=== PATIENT | female | born 1985 | race Caucasian/White ===

== ENCOUNTER 2024-12-26 00:51 | Day surgery (SDC) | payer BC, SELFPAY ==
[2024-12-20 15:10] VITALS: BMI 28.3
--- NOTE | 2024-12-20 15:11 | PC.NURSE ---
Report to the Outpatient Waiting Room, entrance under the green pavilion located off [facility], at time _0600_ on date _[id number]_. Planned Procedure Time: _0730_.? Time changes happen often and if your time is changed the preop area will call you the afternoon before. - You and your visitor will be asked to self-screen and do not enter if you have any COVID symptoms. Please call surgeon if you need to reschedule. - A mask is optional within the hospital at this time. - No food or drink from midnight until time of surgery and no smoking, or chewing tobacco (or any form of nicotine). No chewing gum, candy or mints. Take only the following medications with a SIP of water on the morning of surgery: ____Bupropion and Escitalopram DO NOT STOP ANY OF YOUR OTHER PRESCRIPTION MEDICATIONS PRIOR TO SURGERY EXCEPT THE FOLLOWING Hold all vitamins and supplements for 3 days per anesthesiologist. Medications to discontinue per physician ____Zepbound Date to take last dose___Stop now. Please no make-up, nail indonesian, hairspray, perfume, deodorant, or body powder the day of surgery.? No jewelry (including any body piercings) or valuables the day of surgery, leave them at home.? Please take a shower or bath the night before, or the morning of, surgery with an antibacterial soap.? Wear comfortable, loose fitting clothing.? - Jewelry must be removed prior to entering the operating room.? Rings and piercings that are not removed may be cut off. - The hospital will not accept responsibility for valuables.? - Please leave all valuables, including medications, at home the day of surgery. If you are going home after surgery, a licensed otr truck driver must drive you home.? - NO public transportation without another adult if you receive anesthesia. - We recommend that an adult stay with you for 24 hours following discharge. - We also recommend that you do not drive, make important decision, drink alcoholic beverages, or take any drugs that were not prescribed by your health care provider for at least 24 hours after your discharge time. Follow any additional instructions given to you from your surgeon. Telephone instructions given to __Betty__and asked if any additional questions and then verbalized understanding. Patient advised to call surgeon office or pre surgery nurse liaison [phone] if any additional questions.
[2024-12-26] VITALS (11 sets, daily range): BP systolic 97–120; BP diastolic 40–81; PULSE 80–104; RESP 10–20; TEMP 36.1–36.6; O2SAT 100; BMI 28.8
--- OUTSIDE RECORDS SUMMARY | 2024-12-26 00:55 | XMS_ITS | Clinical Summary ---
Author Organization [facility] Address [address] [place] [address] Care Team Providers Care Dub Room Engineer Name Role Phone Esau Padron DO Primary Care Provider [phone] Allergies Active Allergy Reactions Criticality Noted Date Comments Sulfa Antibiotics Unknown,Anaphylaxis High 4 Medications levothyroxine (EUTHYROX) 50 MCG tabletIndications: Other specified hypothyroidism Take 1 tablet (50 mcg total) by mouth every morning. 90 tablet 3 10/11/20 22 Active EUTHYROX 25 MCG tabletIndications: Other specified hypothyroidism Take every other day alternating with 50mcg 90 tablet 3 10/11/20 22 Active escitalopram (LEXAPRO) 10 MG tabletIndications: Anxiety Take 1 tablet by mouth once daily 90 tablet 07/26/20 23 Active metFORMIN (GLUCOPHAGE) 500 MG tabletIndications: PCOS (polycystic ovarian syndrome) TAKE 1 TABLET BY MOUTH TWICE DAILY WITH MEALS 180 tablet 09/30/20 23 Active folic acid (FOLVITE) 1 MG tablet 10/03/20 23 Active Active Problems Problem Noted Date Diagnosed Date Other specified hypothyroidism 04/27/2022 Anxiety 04/27/2017 PCOS (polycystic ovarian syndrome) 04/14/2016 Ankle pain 10/10/2015 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 Allergic rhinitis 10/23/2014 Dysmenorrhea 10/23/2014 Incisional hernia 10/23/2014 Resolved Problems Problem Noted Date Diagnosed Date Resolved Date Encounter for preventive health examination 10/21/2014 07/25/2020 Immunizations Name Administration Dates Next Due Flublok (Quadrivalent) 10/12/2023,2021,10/05/2021,10/03/2020, 9 Hepatitis B 04/26/2001,02/22/2001,08/10/2000 Tdap (Generic) 12/28/2016,09/02/2010 Family History Medical History Relation Comments No Known Problems Brother Hyperlipidemia Father Hypertension Father No Known Problems Maternal Aunt No Known Problems Maternal Grandfather Heart Disease Maternal Grandmother Parkinson's Disease Maternal Grandmother No Known Problems Maternal Uncle Fibromyalgia Mother No Known Problems Paternal Aunt Brain Tumor Paternal Grandfather Pancreas Disease Paternal Grandmother cancer No Known Problems Paternal Uncle No Known Problems Sister Relation Status Comments Brother Father Alive Maternal Aunt Maternal Grandfather Maternal Grandmother Maternal Uncle Mother Alive Paternal Aunt Paternal Grandfather Paternal Grandmother Paternal Uncle Sister Social History Tobacco Use Types Packs/Day Years Used Date Smoking Tobacco: Never Smokeless Tobacco: Never Alcohol Use Standard Drinks/Week Comments Yes 0 (1 standard drink = 0.6 oz pur e alcohol) occas PHQ-2 Answer Date Recorded PHQ-2 Score - If the patient scores above 3, please move on to questions 3-9 0 10/05/2021 Comments No Sex and Gender Information Value Date Recorded Sex Assigned at Not on file Legal Sex Female 7:32 PM CDT Gender Identity Not on file Sexual Orientation Not on file 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 Not on file Not on file Last Filed Vital Signs Vital Sign Reading Time Taken Comments Blood Pressure 132/84 10/12/2023 8:02 AM 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 Pulse 88 10/12/2023 8:02 AM 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 Temperature 36.5 C (97.7 F) 09/03/2022 2:26 PM CDT Respiratory Rate 18 06/04/2020 2:38 PM CDT Oxygen Saturation 98% 10/11/2022 3:12 PM 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 Inhaled Oxygen Concentration - - Weight 81.6 kg (180 lb) 05/30/2020 6:10 PM CDT Height 160 cm (5' 3 ) 04/27/2022 12:51 PM CDT Body Mass Index 32.92 05/30/2020 6:10 PM CDT Plan of Treatment Health Maintenance Due Date Last Done Comments Cervical Cancer Screening Pap Smear (Age 30 to 64) Every 3 Years 1983 Hepatitis C 2001 Cervical Cancer Screening Pap with HPV Testing (Age 30 to 64) Every 5 Years 2013 Cervical Cancer Screening with HPV 2013 Mammogram Screening 2023 COVID-19 Vaccine ( season) 2024 11/04/2021, 01/29/2021, 01/01/2021 Influenza Adult (#1) 2024 10/12/2023, 10/11/2022, 10/05/2021, Additional history exists Annual Physical 10/12/2024 10/12/2023, 09/15, 10/05/2021, Additional history exists DTaP, Tdap and Td Vaccines (3 - Td or Tdap) 12/28/2026 12/28/2016, 09/02/2010 Hepatitis B Vaccines Completed 04/26/2001, 02/22/2001, 08/10/2000 HPV Vaccines Aged Out No longer eligi ble based on patient's age to complete this topic Meningococcal B Vaccine Aged Out No l onger eligible based on patient's age to complete this topic Meningococcal Vaccine Aged Out No makenna berta eligible based on patient's age to complete this topic Pneumococcal Vaccine: Pediatrics (0 to 5 Years) and At-Risk Patients (6 to 64 Years) Aged Out No longer eligible based on patient's age to complete this topic RSV Immunizations Under 20 Months Aged Out No longer eligible based on patient's age to complete this topic Insurance [facility] Care Teams Dub Room Engineer Relationship Specialty Start Date End Date Esau Padron DO PCP - General 10/10/15
--- OUTSIDE RECORDS SUMMARY | 2024-12-26 00:55 | XMS_ITS | Clinical Summary ---
Author Organization [facility] Address [address] [place] [address] Care Team Providers Care Die Cast Supervisor Name Role Phone Unavailable Primary Care Provider Unavailabl e Source Comments [facility],non-owned Affiliates and Associated Physician Practices is amultiple site organization consisting of ambulatory clinics and hospital sitesin [place], [place], [place] and [place]. This disclosure is being madepursuant to the Care Everywhere program and may not contain all information available regarding this patient. Last updated 18.[facility] [employer] Social History Tobacco Use Types Packs/Day Years Used Date Smoking Tobacco: Never Assessed Sex and Gender Information Value Date Recorded Sex Assigned at Not on file Gender Identity Not on file Sexual Orientation Not on file Plan of Treatment Health Maintenance Due Date Last Done Comments LIPID TESTING 1983 MAMMOGRAM 1983 PAP SMEAR 1983 HIV SCREENING 1998 HEPATITIS C SCREENING 03/27/2001 DTAP/TDAP/TD VACCINES (1 - Tdap) 2002 HEPATITIS B VACCINE (1 of 3 - 19+ 3-dose series) 2002 COVID-19 VACCINE (2023-2 5 season) 2024 INFLUENZA VACCINE (#1) 2024 DEPRESSION SCREENING 11/14/2024 ZOSTER VACCINE (1 of 2) 2033 HIB VACCINE Aged Out No longer eligi ble based on patient's age to complete this topic HPV VACCINE Aged Out No longer eligi ble based on patient's age to complete this topic MENINGOCOCCAL (Group B) VACCINE Aged Out No longer eligible based on patient's age to complete this topic MENINGOCOCCAL VACCINE Aged Out No makenna berta eligible based on patient's age to complete this topic PNEUMOCOCCAL VACCINE Aged Out No long er eligible based on patient's age to complete this topic
--- OUTSIDE RECORDS SUMMARY | 2024-12-26 00:55 | XMS_ITS | Encounter Summary ---
Author Organization [facility] Address [address] [place] [address] Care Team Providers Care Control Technician Name Role Phone Unavailable Primary Care Provider Unavailabl e Encounter Details Date Type Department Care Team (Late st Contact Info) Description 04/29/2022 Lab Requisition [facility] [address] [place], [place] [id number] Nikolas Corral MD [address] [place] [address] Social History Tobacco Use Types Packs/Day Years Used Date Smoking Tobacco: Never Assessed Sex and Gender Information Value Date Recorded Sex Assigned at Not on file Gender Identity Not on file Sexual Orientation Not on file documented as of this encounter Plan of Treatment Not on file documented as of this encounter Procedures Procedure Name Priority Date/Time Associated Diagnosis Comments HCG BETA BLOOD QUANTITATIVE STAT 04/29/2022 12:59 PM CDT documented in this encounter Results * HCG BETA BLOOD QUANTITATIVE (04/29/2022 12:59 PM CDT) hCG Quantitative 6.58 mIU/mL 04/29/20 4:13 PM CDT [facility] Blood BLOOD SPECIMEN / Unknown Venipuncture / Unknown 04/29/2022 12:59 PM CDT 04/29/2022 3:35 PM CDT Narrative [facility] - 04/29/2022 4:13 PM CDT hCG Reference Range, mIU/mL: Males 0-2.0 Non Females 0-6.0 Perimenopausal Females ages 41-55* 0-7.7 Postmenopausal Females age >55* 0-14 Females, Weeks after Last Menstrual Period 0.2-1 week 5-50 1 - 2 weeks 50-500 2 - 3 weeks 100-5000 3 - 4 weeks 500-10,000 4 - 5 weeks 1000-50,000 5 - 6 weeks 10,000-100,000 6 - 8 weeks 15,000-200,000 2 - 3 months 10,000-100,000 Trophoblastic Disease >100,000 *In higher than expected hCG in females > age 40, a serum FSH >20 IU/L makes unlikely. Nikolas Corral MD LAB - CHEMISTRY NIDIA CHAPARRO [facility] Organization Address City/State/[facility] Co de Phone Number [facility] [address] [place] [address] documented in this encounter Visit Diagnoses Not on filedocumented in this encounter
--- OUTSIDE RECORDS SUMMARY | 2024-12-26 00:55 | XMS_ITS | Encounter Summary ---
Author Organization [facility] Address [address] [place] [address] Care Team Providers Care Fats And Oils Loader Name Role Phone Unavailable Primary Care Provider Unavailabl e Encounter Details Date Type Department Care Team (Late st Contact Info) Description 07/10/2019 Lab Requisition [facility] [address] [place] [id number] Annemarie Vines DO [address] [place] [address] Social History Tobacco Use Types Packs/Day Years Used Date Smoking Tobacco: Never Assessed Sex and Gender Information Value Date Recorded Sex Assigned at Not on file Gender Identity Not on file Sexual Orientation Not on file documented as of this encounter Plan of Treatment Not on file documented as of this encounter Procedures Procedure Name Priority Date/Time Associated Diagnosis Comments DERMATOPATHOLOGY Routine 07/09/2019 12:0 0 AM CDT documented in this encounter Results * DERMATOPATHOLOGY (07/09/2019 12:00 AM CDT) Case Report Dermatopathology Report Case: [id number] Authorizing Provider: Annemarie Vines DO Collected: 07/09/2019 12:00 AM Ordering Location: [facility] Received: 07/10/2019 08:17 AM Pathologist: Erin Mobley MD Specimen: Skin, left anterior le 9 12:37 PM CDT DERMATOPATHOLOGY LABORATORY Final Diagnosis Specimen A. SKIN, left anterior le: COMPOUND MELANOCYTIC NEVUS, IRRITATED (D22.72) 9 12:37 PM CDT DERMATOPATHOLOGY LABORATORY Clinical History Nevus vs ISK R/O MM; irregular color. 12:37 PM CDT DERMATOPATHOLOGY LABORATORY Gross Description Specimen A: Received is one formalin filled container labeled with the patient's name and designated left anterior le. The specimen consists of a shave measuring [id number]. Jar 0. 12:37 PM [facility] DERMATOPATHOLOGY LABORATORY Microscopic Description Specimen A. SKIN, left anterior le: There is melanin pigment in the stratum corneum. There are nests of melanocytes at the dermal-epidermal junction and within the dermis. 12:37 PM T DERMATOPATHOLOGY LABORATORY Disclaimer An external and internal positive and negative controls are appropriate for the histochemical, immunohistochemical and immunofluorescence stain(s) in this case (if any), except where stated explicitly. The performance characteristics of the stain(s) cited in this report were developed and its performance characteristic determined by the Dermatopathology Laboratory at [facility], directed by Dr. Devin Simmons. These tests need not be, and therefore are not, approved by the [place] Food and Drug Administration. The tests are used for clinical purposes. Billing Codes Specimen Charges Stain Charges 06699 1 12:37 PM CDT DERMATOPATHOLOGY LABORATORY Embedded Images 12:37 PM CDT DERMATOPATHOLOGY LABORATORY Pathology/Cytolog y TISSUE SPECIMEN FROM SKIN / Unknown 07/09/2019 07/10/2019 8:17 AM CDT Annemarie Vines DO LAB - PATHOLOGY/C YTOLOGY ORDERABLES DERMATOPATHOLOGY LABORATORY [facility] - Department of Dermatology [address] [place] [address] [address] Floor Lab [address] [place], [place] [id number] [place] [address] documented in this encounter Visit Diagnoses Not on filedocumented in this encounter
--- OUTSIDE RECORDS SUMMARY | 2024-12-26 00:55 | XMS_ITS | Referral Summary ---
Author Organization [facility] Address [address] [place] [address] Care Team Providers Care Healthcare Educator Name Role Phone Unavailable Primary Care Provider Unavailabl e Source Comments [facility],non-owned Affiliates and Associated Physician Practices is amultiple site organization consisting of ambulatory clinics and hospital sitesin [place], [place], [place] and [place]. This disclosure is being madepursuant to the Care Everywhere program and may not contain all information available regarding this patient. Last updated 18.[facility] Social History Tobacco Use Types Packs/Day Years Used Date Smoking Tobacco: Never Assessed Sex and Gender Information Value Date Recorded Sex Assigned at Not on file Gender Identity Not on file Sexual Orientation Not on file Plan of Treatment Not on file
--- OUTSIDE RECORDS SUMMARY | 2024-12-26 00:55 | XMS_ITS | Patient Health Summary ---
Author Organization [facility] Address [address] [place] [address] Care Team Providers Care Dinkey Engine Operator Name Role Phone Unavailable Primary Care Provider Unavailabl e Note from [facility],non-owned Affiliates and Associated Physician Practices is amultiple site organization consisting of ambulatory clinics and hospital sitesin [place], [place], [place] and [place]. This disclosure is being madepursuant to the Care Everywhere program and may not contain all information available regarding this patient. Last updated 18.[facility] [employer] Social History Tobacco Use Types Packs/Day Years Used Date Smoking Tobacco: Never Assessed Sex and Gender Information Value Date Recorded Sex Assigned at Not on file Gender Identity Not on file Sexual Orientation Not on file Procedures * HCG BETA BLOOD QUANTITATIVE(Performed 05/11/2022) * HCG BETA BLOOD QUANTITATIVE(Performed 04/29/2022) * HCG BETA BLOOD QUANTITATIVE(Performed 04/22/2022) * HCG BETA BLOOD QUANTITATIVE(Performed 04/06/2022) * DERMATOPATHOLOGY(Performed 07/09/2019) * GROSS + MICRO EXAM(Performed 06/25/1999) Results * HCG BETA BLOOD QUANTITATIVE (05/11/2022 1:04 PM CDT) Only the most recent of4 resultswithin the time period is included. hCG Quantitative 1.67 mIU/mL 05/11/20 2:56 PM CDT [facility] Blood BLOOD SPECIMEN / Unknown Venipuncture / Unknown 05/11/2022 1:04 PM CDT 05/11/2022 2:22 PM CDT Narrative [facility] - 05/11/2022 2:56 PM CDT hCG Reference Range, mIU/mL: Males [...] Corral MD LAB - CHEMISTRY NIDIA CHAPARRO [facility] Organization Address City/State/ZIP Co de Phone Number [facility] [address] [phone] * DERMATOPATHOLOGY (07/09/2019 12:00 AM CDT) Case Report Dermatopathology Report Case: [id number] Authorizing Provider: Annemarie Vines DO Collected: 07/09/2019 12:00 AM Ordering Location: [facility] Received: 07/10/2019 08:17 AM Pathologist: Erin Mobley MD Specimen: Skin, left anterior le 12:37 PM CDT DERMATOPATHOLOGY LABORATORY Final Diagnosis Specimen A. SKIN, left anterior le: COMPOUND MELANOCYTIC NEVUS, IRRITATED (D22.72) 12:37 PM CDT DERMATOPATHOLOGY LABORATORY Clinical History Nevus vs ISK R/O MM; irregular color. 12:37 PM CDT DERMATOPATHOLOGY LABORATORY Gross Description Specimen A: Received is one formalin filled container labeled with the patient's name and designated left anterior le. The specimen consists of a shave measuring [id number]. Jar 0. 12:37 PM CDT DERMATOPATHOLOGY LABORATORY Microscopic Description Specimen A. SKIN, left anterior le: There is melanin pigment in the stratum corneum. There are nests of melanocytes at the dermal-epidermal junction and within the dermis. 12:37 PM CDT DERMATOPATHOLOGY LABORATORY Disclaimer An external and internal positive and negative controls are appropriate for the histochemical, immunohistochemical and immunofluorescence stain(s) in this case (if any), except where stated explicitly. The performance characteristics of the stain(s) cited in this report were developed and its performance characteristic determined by the Dermatopathology Laboratory at [facility], directed by Dr. Devin Simmons. These tests need not be, and therefore are not, approved by the [place] Food and Drug Administration. The tests are used for clinical purposes. Billing Codes Specimen Charges Stain Charges 22474 1 9 12:37 PM CDT DERMATOPATHOLOGY LABORATORY Embedded Images 9 12:37 PM CDT DERMATOPATHOLOGY LABORATORY Pathology/Cytolog y TISSUE SPECIMEN FROM SKIN / Unknown 07/09/2019 07/10/2019 8:17 AM CDT Annemarie Vines DO LAB - PATHOLOGY/C YTOLOGY ORDERABLES DERMATOPATHOLOGY LABORATORY [facility] - Department of Dermatology [address] [place] [address] 5th Floor Lab [address] [phone] * GROSS + MICRO EXAM (06/25/1999 1:40 PM CDT) Result CASE NUMBER [id number] Comment: ORDERING PHYSICIAN Betina ODEN SPECIMEN TYPE Lesion-Chin Date of Surgery 06/25/1999 1036 SPECIMEN SOURCE Lesion chin *Pre Op Dx Lesion chin GROSS DESCRIPTION Received in fixative and labeled Betty Briceño, lesion, chin, there is 0.8 cm long ellipse of pink skin, 0.45 cm in transverse diameter at the midpoint and varying in thickness from 0.3 to 0.4 cm. The margins are colored with blue tattoo ink. The ellipse is sectioned transversely into three parts and is entirely submitted into cassette A1. Grossed by KRISH OCAMPO M.D. *MICROSCOPIC EXAM One slide from cassette A1 shows seven levels of three polypoid portions of skin, skin adnexa and subcutaneous adipose tissue. Within the dermis of all of the slices, there are prominent nests, sheets and cords of nevus cells with bland, oval to slightly irregular nuclei with inconspicuous nucleoli. Multifocally, there are multinucleated nevus cells. In rare foci, there is junctional activity of nevus cells at the epidermal-dermal interface. Cytologic and architectural features of malignancy are not evident. Read by KRISH OCAMPO M.D. DIAGNOSIS SKIN LESION, CHIN COMPOUND [place]EV[place]. CODE 8 [place] [id number] RELEASED BY KRISH Mesa MISCELLANEOUS SAMPLES / Unknown 06/25/1999 1:40 PM CDT 06/25/1999 2:47 PM CDT Historical Provider LAB - PATHOLOGY/C YTOLOGY ORDERABLES
--- OUTSIDE RECORDS SUMMARY | 2024-12-26 00:55 | XMS_ITS | Clinical Summary ---
Author Organization [facility] Address [address] [place] [address] Care Team Providers Care Nuclear Scientist Name Role Phone Unavailable Primary Care Provider Unavailabl e Allergies Active Allergy Reactions Criticality Noted Date Comments Sulfa (Sulfonamide Antibiotics) Anaphylaxis High Medications metFORMIN (GLUCOPHAGE XR) 500 mg Extended Release 24 hour tablet TAKE 1 TABLET PO BID 02/24/2020 Active escitalopram oxalate (LEXAPRO) 10 mg tablet daily at bedtime. 01/25/2020 Active levothyroxine (SYNTHROID) 25 mcg/mL oral suspension compound Take 25 mcg by mouth every other day. Active ondansetron (ZOFRAN ODT) 4 mg Tablet, Rapid Dissolve Take 1 Tablet (4 mg) by mouth every 6 hours as needed for Nausea/Emesis . Dissolve tablet on top of tongue, then swallow with saliva. 10 Tablet 1 09/12/2023 Active Active Problems Problem Noted Date Diagnosed Date Endometriosis determined by laparoscopy-stage III, optimal excisional treatment August 2023 09/28/2023 Family History Medical History Relation Name Comments Hypertension Father Pancreatic Cancer Maternal Aunt Hypertension Mother Nancy Briceño Osteoporosis Mother Nancy Briceño Heart Disease Other great grandma Cancer Paternal Grandmother Kristan Briceño Pancre atic cancer Pancreatic Cancer Paternal Grandmother Kristan Briceño A lso an aunt Relation Name Status Comments Father Maternal Aunt Alive Mother Nancy Briceño Other great grandma Paternal Grandmother Kristan Briceño Social History Tobacco Use Types Packs/Day Years Used Date Smoking Tobacco: Never Passive Smoke Exposure: Never Smokeless Tobacco: Never Tobacco Cessation:Counseling Given: Not Answered Alcohol Use Standard Drinks/Week Comments Yes 0 (1 standard drink = 0.6 oz pur e alcohol) occ Feeling Safe Answer Date Recorded Are you in a relationship wi th someone who hurts you emotionally and/or physically? Unable to obtain 09/07/2023 Food Insecurity Answer Date Recorded Patient needs follow up regarding: Not on file 01/07/2024 Transportation Needs Answer Date Record ed Patient needs follow up regarding: Not on file 01/07/2024 Housing Stability Answer Date Recorded Patient needs follow up regarding: Not on file 01/07/2024 Utility Needs Answer Date Recorded Patient needs follow up regarding: Not on file 01/07/2024 Comments No Sex and Gender Information Value Date Recorded Sex Assigned at Not on file Legal Sex Female 10:31 AM AUTO REPAIR TECHNICIAN Gender Identity Not on file Sexual Orientation Not on file Last Filed Vital Signs Vital Sign Reading Time Taken Comments Blood Pressure 120/73 09/28/2023 3:48 PM AUTO REPAIR TECHNICIAN Pulse 76 09/07/2023 12:21 PM CDT Temperature 36.3 C (97.3 F) 09/07/2023 12:21 PM CDT Respiratory Rate 14 09/07/2023 12:2 1 PM CDT Oxygen Saturation 100% 09/07/2023 12: 21 PM CDT Inhaled Oxygen Concentration - - Weight 96.6 kg (212 lb 14.4 oz) 09/07/2023 7:18 AM CDT Height 160 cm (5' 3 ) 09/28/2023 3:48 PM AUTO REPAIR TECHNICIAN Body Mass Index 37.71 09/07/2023 7:18 AM CDT Plan of Treatment Health Maintenance Due Date Last Done Comments CERVICAL CANCER SCREENING 2013 BREAST CANCER SCREENING 2023 INFLUENZA VACCINE (#1) 2024 2, 10/05/2021, 10/03/2020, Additional history exists COVID-19 Vaccine ( season) 2024 01/29/2021, 01/01/2021 DTAP/TDAP/TD VACCINES (3 - Td or Tdap) 12/28/2026 12/28/2016, 09/02/2010 HEPATITIS B VACCINES Completed 04/26/2001, 02/22/2001, 08/10/2000 HPV VACCINES Aged Out No longer eligi ble based on patient's age to complete this topic PNEUMOCOCCAL VACCINE 0-64 YEARS Aged Out No longer eligible based on patient's age to complete this topic Medical Devices Implanted Type Area State Game Warden Device Identifier Shelf Expiration Date Model / Serial / Lot Barrier Interceed Adh 3x4in [id number] - [id number] Implanted:Qty : 2 on 09/07/2023 by Alexander Pantoja MD at [facility] Adhesion Barrier N/A: Abdomen [employer] 03/13/2028 [id number] / / [id number] Insurance BC BLUE OPTIONS RX [facility] [employer] Advance Directives For more information, please contact: [phone] * Full Code (Latest Code Status on File) Date Activated Date Inactivated Comments 09/07/2023 8:00 AM 09/07/2023 3:06 PM
--- OUTSIDE RECORDS SUMMARY | 2024-12-26 00:55 | XMS_ITS | Patient Health Record ---
Author Organization [facility] Planning Address [address] [place] [address] Care Team Providers Care Filling Winder Name Role Phone Kristen Abbott Primary Care Provider Reason For Referral No Information Immunizations Vaccine Route Administration Date Status Comme nts [id number] Vaccine IM Intramuscular 01/01/2021 Administered Pt tolerated we ll. [id number] Vaccine IM Intramuscular 01/29/2021 Administered Pt tolerated we ll. Plan Of Treatment No Information Insurance Providers Payer Name Payer Address Payer Phone Subscriber Number Group Number Insured Name Patient Relationship to Insured Coverage Start Date Coverage End Date [employer] [address] [place] [address] [id number] Betty Briceño Self - patient is the insured
--- OUTSIDE RECORDS SUMMARY | 2024-12-26 00:55 | XMS_ITS | Encounter Summary ---
Author Organization [facility] Address [address] [place] [address] Care Team Providers Care Corporate Quality Assurance Manager Name Role Phone Unavailable Primary Care Provider Unavailabl e Encounter Details Date Type Department Care Team (Late st Contact Info) Description 04/22/2022 Lab Requisition [facility] [address] [place], [place] [id number] Nikolas Corral MD [address] [place] [address] Social History Tobacco Use Types Packs/Day Years [...] Diagnosis Comments HCG BETA BLOOD QUANTITATIVE STAT 04/22/2022 12:56 PM CDT documented in this encounter Results * HCG BETA BLOOD QUANTITATIVE (04/22/2022 12:56 PM CDT) hCG Quantitative 15.85 mIU/mL 04/22/20 22 4:29 PM CDT [facility] Blood BLOOD SPECIMEN / Unknown Venipuncture / Unknown 04/22/2022 12:56 PM CDT 04/22/2022 3:34 PM CDT Narrative [facility] - 04/22/2022 4:29 PM CDT hCG Reference Range, mIU/mL: Males [...] Corral MD LAB - CHEMISTRY [facility]IA [facility] Organization Address City/State/[facility] Co de Phone Number [facility] [address] [place] [address] documented in this encounter Visit Diagnoses Not on filedocumented in this encounter
--- OUTSIDE RECORDS SUMMARY | 2024-12-26 00:55 | XMS_ITS | Encounter Summary ---
Author Organization [facility] Address [address] [place] [address] Care Team Providers Care Watch Caser Name Role Phone Unavailable Primary Care Provider Unavailabl e Encounter Details Date Type Department Care Team (Late st Contact Info) Description 04/06/2022 Lab Requisition [facility] [address] [place], [place] [id number] Nikolas Corral MD [address] [place] [address] Social History Tobacco Use Types Packs/Day Years [...] Diagnosis Comments HCG BETA BLOOD QUANTITATIVE STAT 04/06/2022 2:49 PM CDT documented in this encounter Results * HCG BETA BLOOD QUANTITATIVE (04/06/2022 2:49 PM CDT) hCG Quantitative 2,511.35 mIU/mL 04/06/20 5:27 PM CDT [facility] Blood BLOOD SPECIMEN / Unknown Venipuncture / Unknown 04/06/2022 2:49 PM CDT 04/06/2022 4:31 PM CDT Narrative [facility] - 04/06/2022 5:27 PM CDT hCG Reference Range, mIU/mL: Males [...] Corral MD LAB - CHEMISTRY NIDIA CHAPARRO [facility] Organization Address City/State/ZIP Co de Phone Number [facility] [address] [place] [address] documented in this encounter Visit Diagnoses Not on filedocumented in this encounter
--- OUTSIDE RECORDS SUMMARY | 2024-12-26 00:55 | XMS_ITS | Encounter Summary ---
Author Organization [facility] Address [address] [facility] [place] [address] Care Team Providers Care Government Gauger Name Role Phone Unavailable Primary Care Provider Unavailabl e Encounter Details Date Type Department Care Team (Late st Contact Info) Description 05/11/2022 Lab Requisition [facility] [address] [place], [place] [id number] Nikolas Corral MD [address] [place] [address] Social History Tobacco Use Types Packs/Day Years [...] Diagnosis Comments HCG BETA BLOOD QUANTITATIVE STAT 05/11/2022 1:04 PM CDT documented in this encounter Results * HCG BETA BLOOD QUANTITATIVE (05/11/2022 1:04 PM CDT) hCG Quantitative 1.67 mIU/mL 05/11/20 2:56 PM CDT [facility] Blood BLOOD SPECIMEN / Unknown Venipuncture / Unknown 05/11/2022 1:04 PM CDT 05/11/2022 2:22 PM CDT Narrative [facility] - 05/11/2022 2:56 PM CDT [...] Corral MD LAB - CHEMISTRY NIDIA CHAPARRO [facility] Organization Address City/State/[facility] Co de Phone Number [facility] [address] [place] [address] documented in this encounter Visit Diagnoses Not on filedocumented in this encounter
--- OUTSIDE RECORDS SUMMARY | 2024-12-26 00:55 | XMS_ITS | Encounter Summary ---
Author Organization [facility] Address [address] [place] [address] Care Team Providers Care Batch Weigher Name Role Phone Esau Padron DO Primary Care Provider [phone] Encounter Details Date Type Department Care Team (Latest Contact Info) Description 09/19/2018 Abstract [facility] , Generic Conversion, Social History Tobacco Use Types Packs/Day Years Used Date Smoking Tobacco: Never Assessed Comments Unknown Sex and Gender Information Value Date Recorded Sex Assigned at Not on file Legal Sex Female 7:32 PM CDT Gender Identity Not on file Sexual Orientation Not on file documented as of this encounter Plan of Treatment Not on file documented as of this encounter Visit Diagnoses Not on filedocumented in this encounter Care Teams Batch Weigher Relationship Specialty Start Date End Date Esau Padron DO PCP - General 10/10/15 documented as of this encounter
--- OUTSIDE RECORDS SUMMARY | 2024-12-26 00:55 | XMS_ITS | Clinical Summary ---
Author Organization [facility] Address [address] [place] [address] Care Team Providers Care Cushion Mat Maker Name Role Phone Esau Padron DO Primary Care Provider YeseniaAlexei fernández DO Unavailable [phone] Allergies Active Allergy Reactions Criticality Noted Date Comments Sulfa (Sulfonamide Antibiotics) Anaphylaxis,Unknown High 10/23/2014 Medications cholecalciferol (VITAMIN D-3) 5,000 unit capsule Take 1 capsule (5,000 Units total) by mouth daily Active magnesium oxide 400 mg magnesium capsule Take 800 mg by mouth daily Active spironolactone (ALDACTONE) 25 mg tabletIndications: PCOS (polycystic ovarian syndrome) Take 0.5 tablets (12.5 mg total) by mouth daily 45 tablet 3 4 Active levothyroxine (SYNTHROID) 50 mcg tabletIndications: Other specified hypothyroidism Take 1 tablet (50 mcg total) by mouth daily 90 tablet 3 4 Active escitalopram (LEXAPRO) 10 mg tabletIndications: Mild mood disorder (HCC) Take 1 tablet (10 mg total) by mouth daily 90 tablet 3 4 10/08/20 25 Active buPROPion XL (WELLBUTRIN XL) 150 mg 24 hr tabletIndications: Mild mood disorder (HCC),Anxiety Take 1 tablet (150 mg total) by mouth every morning 90 tablet 3 4 10/08/20 25 Active metFORMIN (GLUCOPHAGE) 500 mg tablet Take 1 tablet by mouth twice daily 180 tablet 4 Active clotrimazole 1 % cream Apply topically 2 (two) times a day 60 g 1 4 Active cyclobenzaprine (FLEXERIL) 5 mg tabletIndications: Neck pain Take 1 tablet (5 mg total) by mouth 3 (three) times a day as needed for muscle spasms 20 tablet 4 12/29/19 25 Active tirzepatide, weight loss, (Zepbound) 12.5 mg/0.5 mL pen injector Inject 0.5 mL (12.5 mg total) under the skin every 7 days 7 mL 1 5 Active Active Problems Problem Noted Date Diagnosed Date Morbid obesity with BMI of 40.0-44.9, adult 05/15 Routine physical examination 12/22/2023 Overview (10/08/2024): October 12, 2023 October 08, 2024 Infertility, female 12/22/2023 Overview (12/22/2023): Unfortunately unexplained infertility Mild mood disorder 12/22/2023 Overview (10/08/2024): Chronic, stable condition on Wellbutrin and Lexapro Continue same medications Anxiety 12/22/2023 Overview (10/08/2024): Chronic, stable condition on Wellbutrin and Lexapro Continue same medications Other specified hypothyroidism 04/27/2022 Overview (06/05/2024): Chronic, stable condition on daily thyroid replacement Continue same medications Normal labs September 2023 PCOS (polycystic ovarian syndrome) 04/14/2016 Overview (06/05/2024): Overall stable on metformin his spironolactone Continue same medications Encounters Date Type Department Care Team Description 10/30/2024 4:30 PM BRANCH SALES AND SERVICE REPRESENTATIVE Office Visit [facility] Primary [facility] [address] [place] [phone] Esau Padron DO Neck pain (Primary Dx) 10/08/2024 11:45 AM BRANCH SALES AND SERVICE REPRESENTATIVE Lab [facility] Building 1 Lab [address] [place] [address] Other specified hypothyroidism; Need for hepatitis C screening test 10/08/2024 11:15 AM BRANCH SALES AND SERVICE REPRESENTATIVE Office Visit [facility] Primary Care [address] [facility] [address] [place] [phone] Esau Padron, DO Routine physical examination (Primary Dx); Need for hepatitis C screening test; Need for influenza vaccination; Mild mood disorder (HCC); Anxiety; Other specified hypothyroidism from Last 3 Months Immunizations Name Administration Dates Next Due Hep B, Adolescent or Pediatric 04/26/2001,2000,08/10/2000 Hep B, Unspecified 04/26/2001,02/22/2001, 000 Influenza, Quadrivalent, Rec ombinant, Egg Free, Preservative Free, Intramuscular 10/12/2023,10/11/2022,10/05/2021,10/03,10/02/2019 Influenza, Trivalent, Preser vative Free, Intramuscular 10/08/2024 Influenza, Unspecified 10/08/2024(Deferred: Christen ent Refused) Influenza, Whole 10/12/2023 Pfizer SARS-CoV-2 Monovalent Vaccination (12+ Yrs) PURPLE 09/14/2022 Tdap 12/28/2016,09/02/2010 Surgical History Surgery Date Site/Laterality Comments REDUCTION MAMMAPLASTY 11/14/2002 - 11/13/2003 LYMPH NODE BIOPSY 11/14/1996 - 11/13/1997 [facility] SMALL INTESTINE SURGERY 11/14/1982 - 1983 FRACTURE SURGERY 2032 ABDOMINAL SURGERY 1982 Medical History Medical History Date Comments Depression Obesity PCOS (polycystic ovarian syndrome) takes metformin for Allergic rhinitis Wears glasses PONV (postoperative nausea and vomiting) Motion sickness Vertigo Anxiety Last menstrual period (LMP) > 10 days ago 11/16/21 Family History Medical History Relation Name Comments Heart attack Father Dad Hypertension Father Dad Arthritis Mother Hyperlipidemia Mother Breast cancer Neg Hx Relation Name Status Comments Father Dad Mother Alive Social History Tobacco Use Types Packs/Day Years Used Date Smoking Tobacco: Never Cigarettes Smokeless Tobacco: Never Tobacco Cessation:Counseling Given: Not Answered AUDIT-C Answer Date Recorded Q1: How often do you have a drink containing alc ohol? Monthly or less 10/08/2024 Q2: How many drinks containi ng alcohol do you have on a typical day when you are drinking? 1 or 2 10/08/2024 Q3: How often do you have si x or more drinks on one occasion? 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 on file Not on file Not on file Obstetrics History Para Term AB IAB SAB Ectopic Multiple Livin g Live Births 2 0 0 Date Outcome GA Total Labor Labor/2nd/3rd Weight Sex Type Anes PTL Kimberly A1 A5 Name Clin Last Filed Vital Signs Vital Sign Reading Time Taken Comments Blood Pressure 122/74 10/30/2024 4:28 PM BRANCH SALES AND SERVICE REPRESENTATIVE Pulse 92 10/30/2024 4:28 PM BRANCH SALES AND SERVICE REPRESENTATIVE Temperature 36.3 C (97.4 F) 10/30/2024 4:28 PM BRANCH SALES AND SERVICE REPRESENTATIVE Respiratory Rate 18 10/30/2024 4:28 PM BRANCH SALES AND SERVICE REPRESENTATIVE Oxygen Saturation 99% 10/30/2024 4:28 PM BRANCH SALES AND SERVICE REPRESENTATIVE Inhaled Oxygen Concentration - - Weight 86.5 kg (190 lb 11.2 oz) 024 11:09 AM BRANCH SALES AND SERVICE REPRESENTATIVE Height 152.4 cm (5') 10/30/2024 4:28 PM BRANCH SALES AND SERVICE REPRESENTATIVE Body Mass Index 37.24 10/08/2024 11:09 AM BRANCH SALES AND SERVICE REPRESENTATIVE Plan of Treatment Health Maintenance Due Date Last Done Comments Cervical Cancer Screening 1983 Varicella Vaccines (1 of 2 - + 2-dose series) 1996 Covid-19 Vaccine ( season) 2024 09/14/2022, 11/04/2021, 01/29/2021, Additional history exists Breast Cancer Screening-Mammogram 07/09/2025 07/09/2024 Depression Screening 10/08/2025 10/08/2024, 02/08/20 24 Regular Well Visit/Exam 18-64 10/08/2025 10/08/2024 DTaP/Tdap/Td Vaccine (3 - Td or Tdap) 12/28/2026 12/28/2016, 09/02/2010 Hepatitis B Screening Completed 04/26/2001 , 04/26/2001, 02/22/2001, Additional history exists Hepatitis C Screening Completed 10/08/2024 Influenza Vaccine Completed 10/08/2024, , 10/12/2023, Additional history exists HPV Vaccines Aged Out No longer eligi ble based on patient's age to complete this topic Pneumococcal vaccine <65 Aged Out No longer eligible based on patient's age to complete this topic Medical Devices Implanted Type Area Chip Person Device Identifier Shelf Expiration Date Model / Serial / Lot Synthes Lcp Combi 99mm 5 Hole Fibula Left Distal Lateral Contour Plate - S0 - [id number] Implanted:Qty: 1 on 12/04/2021 by Alexei Green DO at [facility] Plate Left: Ankle Synthes I / / Synthes 204.820 3.5mm 6mm 20mm 2.5mm Self Tap Small Hexagonal Socket Low Profile - S204.820 - [id number] Implanted:Qty: 1 on 12/04/2021 by Alexei Green DO at [facility] Screw Left: Ankle Synthes I 204.820 / 204.820 / Synthes 204.814 3.5mm 6mm 14mm 2.5mm Self Tap Small Hexagonal Socket Low Profile - S204.814 - [id number] Implanted:Qty: 3 on 12/04/2021 by Alexei Green DO at [facility] Screw Left: Ankle Synthes I 204.814 / 204.814 / Synthes 202.212 2.7mm 2.1mm 12mm Self Tap Lock Stardrive Thread Head Profile T8 - S202.212 - [id number] Implanted:Qty: 3 on 12/04/2021 by Alexei Green DO at [facility] Screw Left: Ankle Synthes I 202.212 / 202.212 / Synthes 202.214 2.7mm 2.1mm 14mm Self Tap Lock Stardrive Thread Head Profile T8 - S202.214 - [id number] Implanted:Qty: 2 on 12/04/2021 by Alexei Green DO at [facility] Screw Left: Ankle Synthes I 202.214 / 202.214 / Synthes 204.820 3.5mm 6mm 20mm 2.5mm Self Tap Small Hexagonal Socket Low Profile - [id number] Implanted:Qty: 1 on 12/04/2021 by Alexei Green DO at [facility] Left: Ankle Synthes I 204.820 / / Procedures Procedure Name Priority Date/Time Associated Diagnosis Comments T4, FREE Routine 10/08/2024 11:53 AM BRANCH SALES AND SERVICE REPRESENTATIVE Other specified hypothyroidism TSH Routine 10/08/2024 11:53 AM BRANCH SALES AND SERVICE REPRESENTATIVE Other specified hypothyroidism HEPATITIS C ANTIBODY Routine 10/08/2024 11:53 AM BRANCH SALES AND SERVICE REPRESENTATIVE Need for hepatitis C screening test SCREENING MAMMOGRAM BILATERAL W YOMAIRA Schedule Routine, Read Routine (OP Routine) 07/09/2024 9:05 AM CDT Screening mammogram, encounter for from Last 3 Months or Most Recently Relevant to Health Maintenance Results * Hepatitis C antibody Blood (10/08/2024 11:53 AM BRANCH SALES AND SERVICE REPRESENTATIVE) Hep C Ab Nonreactive Nonreactive Comment: Antibodies to HCV not detected. Does NOT exclude the possibility of recent exposure to HCV. Current interpretive data was last revised on 22 Interpretive Data Nonreactive: Antibodies to HCV not detected. Does NOT exclude the possibility of recent exposure to HCV. Equivocal: Equivocal for HCV antibodies. Supplemental molecular testing will be automatically performed to determine infection status in accordance with current CDC screening recommendations. Reactive: Positive for HCV antibodies. This may represent current or past HCV infection. Supplemental molecular testing will be automatically performed to determine current infection status in accordance with current CDC screening recommendations. Interpretive data was last revised on 2020. Blood 10/08/2024 11:5 3 AM BRANCH SALES AND SERVICE REPRESENTATIVE 10/08/2024 4:24 PM BRANCH SALES AND SERVICE REPRESENTATIVE us Esau Brandan Vito DO LAB MICROBIOLOGY - GEN ERAL ORDERABLES Final Result Performing Organization Address [facility] de Phone Number LANA [address] [address] * TSH (10/08/2024 11:53 AM BRANCH SALES AND SERVICE REPRESENTATIVE) Thyroid Stimulating Hormone 1.75 0.30 - 4.20 mcIUnit/mL Comment:Testing performed by : [address] [address] Blood 10/08/2024 11:5 3 AM BRANCH SALES AND SERVICE REPRESENTATIVE 10/08/2024 1:58 PM BRANCH SALES AND SERVICE REPRESENTATIVE [facility] DO LAB BLOOD ORDERABLES E dited Result - Final Performing Organization Address [facility] de Phone Number LANA [address] [address] * T4, free (10/08/2024 11:53 AM BRANCH SALES AND SERVICE REPRESENTATIVE) Free T4 1.21 0.90 - 1.70 ng/dL Comment:Testing performed by : [address] [address] Blood 10/08/2024 11:5 3 AM BRANCH SALES AND SERVICE REPRESENTATIVE 10/08/2024 1:58 PM BRANCH SALES AND SERVICE REPRESENTATIVE [facility] DO LAB BLOOD ORDERABLES F inal Result Performing Organization Address [facility] Co de Phone Number LANA [address] [place] [address] * Screening Mammogram Bilateral W Yomaira (07/09/2024 9:05 AM CDT) Anatomical Region Laterality Modality Breast Bilateral Mammography Impressions 07/09/2024 10:36 AM CDT BI-RADS ATLAS category (overall): 1 - Negative There is no mammographic evidence of malignancy. A 1 year screening mammogram is recommended. The patient has been or will be contacted. We recommend annual screening mammography for women at average risk of breast cancer beginning at age 40, based on guidelines of the [place] [employer] (ACR Practice Parameter for the Performance of Screening and Diagnostic Mammography) and [place] [employer]. For women with and elevated risk of breast cancer, please refer to the ACR Practice Parameter for specific screening recommendations. The patient will be entered into a reminder system with a target due date of 1 year for her next screening exam. Narrative 07/09/2024 10:36 AM CDT Screening Mammogram Bilateral W Yomaira: 07/09/24 The study was acquired using full field digital technology and interpreted from soft copy. 2D digital mammographic views, as well as 3D digital tomosynthesis were performed in the CC and MLO projections. CLINICAL: Screening mammogram, encounter for. No relevant medical history has been documented for this patient. History of breast cancer in Neg Hx. COMPARISON: Baseline Screening Mammography. No prior mammography is available for comparison. BREAST TISSUE: The breasts are almost entirely fatty. FINDINGS: There are postoperative changes of bilateral reduction mammoplasty. No suspicious masses, suspicious calcifications, or other suspicious findings are seen within either breast. us Esau Padron DO IMG MAMMO PROCEDURES F inal Result from Last 3 Months or Most Recently Relevant to Health Maintenance Insurance [facility] HMO Care Teams Cushion Mat Maker Relationship Specialty Start Date End Date Esau Padron DO PCP - General Family Practice 11/30/21 Alexei Green DO [address] [place] [address] Consulting Physician Orthopedic Surgery 12/04/21
--- OUTSIDE RECORDS SUMMARY | 2024-12-26 00:55 | XMS_ITS | Referral Summary ---
Author Organization [facility] Address [address] [place] [address] Care Team Providers Care Disability Rater Name Role Phone Esau Padron DO Primary Care Provider Alexei Green DO Unavailable [phone] Encounters Date Type Department Care Team Description 10/30/2024 4:30 PM BRAILLE PROOFREADER Office Visit [facility] Primary Care [address] [place] [phone] Esau Padron DO Neck pain (Primary Dx) 10/08/2024 11:45 AM BRAILLE PROOFREADER Lab [facility] Building [address] [place] [id number] Other specified hypothyroidism; Need for hepatitis C screening test 10/08/2024 11:15 AM BRAILLE PROOFREADER Office Visit [facility] Primary Care [address] [place] [phone] Esau Padron DO Routine physical examination (Primary Dx); Need for hepatitis C screening test; Need for influenza vaccination; Mild mood disorder (HCC); Anxiety; Other specified hypothyroidism from Last 3 Months Allergies Active Allergy Reactions Criticality Noted Date [...] every morning 90 tablet 3 4 10/08/20 Active metFORMIN (GLUCOPHAGE) 500 mg tablet Take 1 tablet by mouth twice daily 180 tablet 4 Active clotrimazole 1 % cream Apply topically 2 (two) times a day 60 g 1 4 Active cyclobenzaprine (FLEXERIL) 5 mg tabletIndications: Neck pain Take 1 tablet (5 mg total) by mouth 3 (three) times a day as needed for muscle spasms 20 tablet 4 12/29/19 Active tirzepatide, weight loss, (Zepbound) 12.5 mg/0.5 [...] on metformin his spironolactone Continue same medications Immunizations Name Administration Dates Next Due Hep B, Adolescent or Pediatric 04/26/2001,2000,08/10/2000 Hep B, Unspecified 04/26/2001,02/22/2001, 000 Influenza, Quadrivalent, Rec ombinant, Egg Free, Preservative Free, Intramuscular 10/12/2023,10/11/2022,10/05/2021,10/03,10/02/2019 Influenza, Trivalent, Preser vative Free, Intramuscular 10/08/2024 Influenza, Unspecified 10/08/2024(Deferred: Christen ent Refused) Influenza, Whole 10/12/2023 Pfizer SARS-CoV-2 Monovalent Vaccination (12+ Yrs) PURPLE 09/14/2022 Tdap 12/28/2016,09/02/2010 Social History Tobacco Use Types Packs/Day Years [...] on file Legal Sex Female 5:05 PM BRAILLE PROOFREADER Gender Identity Female 01/15/2024 4:13 PM BRAILLE PROOFREADER Sexual Orientation Not on file 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 Not on file Not on file Last Filed Vital Signs Vital Sign Reading Time Taken Comments Blood Pressure 122/74 10/30/2024 4:28 PM BRAILLE PROOFREADER Pulse 92 10/30/2024 4:28 PM BRAILLE PROOFREADER Temperature 36.3 C (97.4 F) 10/30/2024 4:28 PM BRAILLE PROOFREADER Respiratory Rate 18 10/30/2024 4:28 PM BRAILLE PROOFREADER Oxygen Saturation 99% 10/30/2024 4:28 PM BRAILLE PROOFREADER Inhaled Oxygen Concentration - - Weight 86.5 kg (190 lb 11.2 oz) 11:09 AM BRAILLE PROOFREADER Height 152.4 cm (5') 10/30/2024 4:28 PM BRAILLE PROOFREADER Body Mass Index 37.24 10/08/2024 11:09 AM BRAILLE PROOFREADER Plan of Treatment Not on file Medical Devices Implanted Type Area Intake Nurse Device Identifier Shelf Expiration Date Model / Serial / Lot Synthes 141 Lcp Combi 99mm 5 Hole Fibula Left Distal Lateral Contour Plate - [id number] - [id number] Implanted:Qty: 1 on 12/04/2021 by Alexei Green DO at [facility] Plate Left: Ankle Synthes I [id number] / [id number] / Synthes 204.820 3.5mm 6mm 20mm 2.5mm Self Tap Small Hexagonal Socket Low Profile - S204.820 - [id number] Implanted:Qty: 1 on 12/04/2021 by Alexei Green DO at [facility] Screw Left: Ankle Synthes I 204.820 / 204.820 / Synthes 204.814 3.5mm 6mm 14mm 2.5mm Self Tap Small Hexagonal Socket Low Profile - S204.814 - [id number] Implanted:Qty: 3 on 12/04/2021 by Alexei Green DO at [facility] Screw Left: Ankle Synthes I 204.814 / 204.814 / Synthes 202.212 2.7mm 2.1mm 12mm Self Tap Lock Stardrive Thread Head Profile T8 - S202.212 - [id number] Implanted:Qty: 3 on 12/04/2021 by Alexei Green DO at [facility] Screw Left: Ankle Synthes I 202.212 / 202.212 / Synthes 202.214 2.7mm 2.1mm 14mm Self Tap Lock Stardrive Thread Head Profile T8 - S202.214 - [id number] Implanted:Qty: 2 on 12/04/2021 by Alexei Green DO at [facility] Screw Left: Ankle Synthes I 202.214 / 202.214 / Synthes 204.820 3.5mm 6mm 20mm 2.5mm Self Tap Small Hexagonal Socket Low Profile - [id number] Implanted:Qty: 1 on 12/04/2021 by Alexei Green DO at [facility] Left: Ankle Synthes I 204.820 / / Procedures Procedure Name Priority Date/Time Associated Diagnosis Comments T4, FREE Routine 10/08/2024 11:53 AM BRAILLE PROOFREADER Other specified hypothyroidism TSH Routine 10/08/2024 11:53 AM BRAILLE PROOFREADER Other specified hypothyroidism HEPATITIS C ANTIBODY Routine 10/08/2024 11:53 AM BRAILLE PROOFREADER Need for hepatitis C screening test SCREENING MAMMOGRAM BILATERAL W YOMAIRA Schedule Routine, Read Routine (OP Routine) 07/09/2024 9:05 AM CDT Screening mammogram, encounter for from Last 3 Months or Most Recently Relevant to Health Maintenance Results * Hepatitis C antibody Blood (10/08/2024 11:53 AM BRAILLE PROOFREADER) Hep C Ab Nonreactive Nonreactive Comment: Antibodies [...] on 2020. Blood 10/08/2024 11:5 3 AM BRAILLE PROOFREADER 10/08/2024 4:[address] [facility] Brandan Maspeth DO LAB MICROBIOLOGY - GEN ERAL ORDERABLES Final Result Performing Organization Address [facility] Co de Phone Number LANA [address] [address] * TSH (10/08/2024 11:53 AM BRAILLE PROOFREADER) Thyroid Stimulating Hormone 1.75 0.30 - 4.20 mcIUnit/mL Comment:Testing performed by : [address] [address] Blood 10/08/2024 11:5 3 AM BRAILLE PROOFREADER 10/08/2024 1:58 PM BRAILLE PROOFREADER [facility] BLOOD ORDERABLES E dited Result - Final Performing Organization Address [facility] Co de Phone Number LANA [address] [address] * T4, free (10/08/2024 11:53 AM BRAILLE PROOFREADER) Free T4 1.21 0.90 - 1.70 ng/dL Comment:Testing performed by : [address] [address] Blood 10/08/2024 11:5 3 AM BRAILLE PROOFREADER 10/08/2024 1:58 PM BRAILLE PROOFREADER [facility] Maspeth DO LAB BLOOD ORDERABLES F inal Result Performing Organization Address [facility] Co de Phone Number LANA [address] [place] [address] * Screening Mammogram Bilateral W Yomaira (07/09/2024 [...] age 40, based on guidelines of the [place] [employer] (ACR Practice Parameter for the Performance of Screening and Diagnostic Mammography) and [place] [employer]. For women [...] suspicious findings are seen within either breast. Esau Padron DO IMG MAMMO PROCEDURES F inal Result from Last 3 Months or Most Recently Relevant to Health Maintenance Insurance [facility] Care Teams Disability Rater Relationship Specialty Start Date End Date Esau Padron DO PCP - General Family Practice 11/30/21 Alexei Green DO [address] [place] [address] Consulting Physician Orthopedic Surgery 12/04/21
[2024-12-26] MEDS: LACTATED RINGERS 1,000 ML 30 ML IV CONT ×2 (06:35→09:20)
[2024-12-26 06:47] LABS: BEDSIDEPREGUCG Negative (Negative)
--- NOTE | 2024-12-26 06:50 | P.HPUP_ITS ---
History and Physical Update Update Date/Time: 12/26/24 06:50 Patient seen and examined in pre-operative holding area. No interval change in medical history or symptoms. Patient remembers previous discussion of benefits and alternatives to procedure. Continues to desire to proceed with bilateral breast reduction. I reviewed the risks including but not limited to bleeding ,infection, asymmetry, undesireable cosmetic appearance, partial/total skin/nipple loss, no change or worsening of symptoms, change in sensation. I discussed the possible use of assistants and their level of participation in the case. Patient stated understanding and signed the consent form wishing to pr oceed
--- NOTE | 2024-12-26 06:50 | P.OP_ITS ---
Procedure Note - Detailed Date of Procedure 12/26/24 Pre-op Diagnosis hypertrophy of breast Post-op Diagnosis Same Procedure Performed b/l breast reduction Surgeon Janneth Carter MD [employer] Rig Operator christa galarza pa-c Anesthesia General Description of Procedure Patient was seen in the preoperative holding area where the breasts were marked for an inferior pedicle Paulino pattern reduction. Consent form was signed. Patient was taken back to the operating room and placed on the table in the supine position. Time-out was performed with Anesthesia, surgeon, and staff agreeing on patient's name, site, and surgery to be performed. SCDs were placed on the lower extremities and inflated. Antibiotics were given IV. After general anesthesia was administered the breasts were prepped and draped in the usual sterile fashion. I took my attention 1st to the right breast where I used a saline moistened lap pad and a Sriram clamp to create a breast tourniquet. 38 mm nipple Sizer was used to circumscribe the nipple-areolar complex. Ten blade scalpel was used to make this incision and then I proceeded with de epithelializing an 8 cm wide inferior pedicle. I made my other skin incisions with 15 blade through skin and partially through dermis. Bovie cautery used was used to elevate skin flaps and compress plane down to the chest wall exposing the breast tissue. I proceeded with resection of 325 g from the right breast with Bovie cautery. Further resection would have resulted in increased risk of compromising the neurovascular pedicle to the nipple. I irrigated with normal saline. Hemostasis with Bovie cautery. I plicated the pedicle with 2-0 Vicryl suture. 2-0 Prolene was used to secure the T-junction. 3-0 Vicryl was used for dermis. The nipple was brought out 5 cm above the inframammary fold at the most prominent portion of the breast at the breast midline and secured with 3-0 Vicryl suture. 4-0 Monocryl was used for subcuticular closure. The nipple appeared viable with good cap refill. I took my attention to the left breast where the similar procedure was performed. I used a breast tourniquet, 38 mm nipple Sizer, and de- epithelialized 8 cm wide inferior pedicle. I made my other skin incisions and then using Bovie cautery elevated my skin flaps and Allen's plane down to the chest wall. I proceeded with resection of 251 g of tissue from the left breast which appeared reasonably symmetric to the right breast. Irrigated with normal saline and hemostasis with Bovie cautery. The pedicle was plicated with 2-0 Vicryl suture. 2-0 Prolene was used to secure the T-junction. 3-0 Vicryl was used for dermal closure. The nipple was brought out 5 cm above the inframammary fold at the most prominent portion of the breast at the breast midline and secured with 3-0 Vicryl suture. 4-0 Monocryl was used for subcuticular closure. The nipple appeared viable with good cap refill though noting slight delayed compared to the right breast and did not seem abnormal given patient's previous history previous breast reduction surgery. Punctate bleeding at the nipple- areolar edge was noted during closure as well. There was good size, shape, and symmetry to the breasts. I proceeded with injecting 20 cc of 1% lidocaine with epinephrine and 0.5% M arcaine plain along the anterior axillary line and inframammary fold for each breast. A dressing of Mastisol, Steri-Strips, 4 x 4, ABDs and a breast binder was then applied. The patient was awakened from anesthesia and transferred to the recovery in stable condition. Complications: None Estimated blood loss: 50 cc Disposition: Patient tolerated the procedure well and will be going home later today Christa Galarza PA-C was essential for positioning, retraction, resection, closure and dressing placement [facility] [place] Billing Surgery - Charge Forward: Surgery Billing ([id number] same for christa recio )
--- NOTE | 2024-12-26 07:12 | WPDANESEPPF ---
Anes - Initial Pre Proc Eval Procedure: Operation Date: 12/26/24 07:30 Proposed Procedures p Bilateral Breast Reduction - Janneth Carter MD Date/Time: 12/26/24 07:12 Surgeon: Janneth Carter MD Pre Op Diagnosis: hypertrophy of breast Patient Data Age: 39 Gender: F Height: 1.6 m Weight: 73.95 kg Last Vital Signs Temp 98 F 12/26/24 06:19 Pulse 88 12/26/24 06:19 Resp 16 12/26/24 06:19 BP 113/57 L 12/26/24 06:19 Pulse Ox 100 12/26/24 06:19 Allergies Allergy/AdvReac Type Severity Reaction Status Date / Time Sulfa (Sulfonamide Allergy Severe Anaphylaxis Verified 12/26/24 06:17 Antibiotics) Home Medications ?Medication ?Instructions ?Recorded ?Confirmed ?Type bupropion HCl 150 mg 24 hr tablet, 150 mg PO DAILY 12/20/24 12/26/24 History extended release escitalopram oxalate 10 mg tablet 10 mg PO HS 12/20/24 12/26/24 History magnesium glycinate 100 mg (as 300 mg PO HS 12/20/24 12/26/24 History glycinate) tablet metformin 500 mg tablet 500 mg PO BID 12/20/24 12/26/24 History spironolactone 25 mg tablet 25 mg PO DAILY 12/20/24 12/26/24 History tirzepatide (weight loss) 12.5 12.5 mg subcut WEEKLY 12/20/24 12/26/24 History mg/0.5 mL subcutaneous pen injector (Zepbound) vitamin D3 125 mcg (5,000 1 cap PO DAILY 12/20/24 12/26/24 History unit)-vitamin K2 90 mcg capsule cephalexin 500 mg capsule 500 mg PO Q8H #21 caps 12/26/24 Rx hydrocodone 5 mg-acetaminophen 325 1 tablet PO Q6H PRN pain #12 tabs 12/26/24 Rx mg tablet Laboratory Tests 12/26/24 06:43 POC Urine HCG, Qual Negative (Negative) Patient hx anesthesia problems: post op nausea/vomiting Family hx anesthesia problems: none Results Review: All pre-operative results and documents have been reviewed as part of the pre-operative evaluation. [facility] Social History Social History (Reviewed 12/26/24 @ 07:12 by SARTHAK Grullon Smoking status: Never smoker Living arrangements: with family Spiritual care concerns: No Anes - Eval Final PreProcedure Day of Procedure 12/26/24 07:12 Patient weight: overweight Lungs: normal air movement Airway: Mallampati scale class II Neurological: alert and oriented Last oral intake: >/= 8 hours ASA classification: I Emergent: no Anesthetic plan: proceed Anesthesia type and monitoring: general ETT and standard monitoring Results Review: All pre-operative results and documents have been reviewed as part of the pre-operative evaluation. Anxiety/depression. Informed Consent: The patient's anesthetic plan and its attendant risks and benefits were discussed with the patient/family/POA. Questions were solicited and answers provided to the satisfaction of the patient/family/POA.
[2024-12-26] MEDS: ceFAZolin 2 GM/D5W 50 ML 2 GM/50 ML BAG IVPB (07:28)
[2024-12-26] MEDS: SCOPOLAMINE 1 MG PATCH 1 PATCH TRANSDERM (07:30)
[2024-12-26] MEDS: LIDO 1%/EPINEPHRINE 1:100,000 50 ML VIAL 30 ML INFILTRATE (08:06)
--- NOTE | 2024-12-26 08:07 | SUR.OPER ---
Flex Cardenas RN inquired before the case began and was informed to keep the breast tissue in the room WITHOUT formalin and sent down fresh WHENEVER THE SURGEON AND PA HAVE FINISHED DISSECTING ANY AND ALL OF THE SPECIMEN THEY WISH TO SEND.
== END 2024-12-26 11:35 | disposition home or self-care (01) ==
PROVIDERS: Visit Provider Plastic Surgery
PROC: 0HBV0ZZ Excision of Bilateral Breast, Open Approach (ICD-10-PCS; CPT 19318; principal; 2024-12-26 07:30)
DX: N62 Hypertrophy of breast (principal)
CPT/HCPCS: 19318; 88305; A9270; J0690; J1100; J1171; J2003; J2004; J2250; J2405; J2704; J3010; J7120